=== PATIENT | female | born 1950 | race African-American/Black ===

== ENCOUNTER 2019-05-15 09:43 | Emergency (ER) | payer OTHER ==
[2019-05-15 09:57] VITALS: BMI 26.2
--- NOTE | 2019-05-15 10:29 | PDOC ---
History of Present Illness - General Chief Complaint: Pain Stated Complaint: BILATERAL FOOT PAIN Time Seen by Provider: 05/15/19 10:01 History Source: Patient - History of Present Illness Timing/Duration: other Past History - Past Medical History Allergies/Adverse Reactions: Allergies Allergy/AdvReac Type Severity Reaction Status Date / Time No Known Allergies Allergy Verified 05/15/19 09:49 Home Medications: Ambulatory Orders Amlodipine Besylate [Norvasc -] 10 mg PO DAILY 05/15/19 Aspirin 81 mg PO DAILY 05/15/19 Atorvastatin Calcium 40 mg PO HS 05/15/19 Memantine HCl [Namenda -] 5 mg PO BID 05/15/19 metFORMIN HCL [Metformin HCl] 500 mg PO DAILY 05/15/19 COPD: No Diabetes: Yes HTN: Yes Hypercholesterolemia: Yes - Immunization History Td Vaccination: Yes Immunization Up to Date: Yes - Psycho Social/Smoking Cessation Hx Smoking Status: Yes Smoking History: Never smoked Years of Tobacco Use: 0 Number of Cigarettes Smoked Daily: 0 Cigars Per Day: 0 Review of Systems - Review of Systems Constitutional: No: Chills, Fever, Malaise, Weakness Respiratory: No: Cough, Shortness of Breath Cardiac (ROS): No: Chest Pain ABD/GI: No: Diarrhea, Nausea, Vomiting, Abdominal cramping Neurological: No: Headache, Dizziness *Physical Exam - Vital Signs Last Vital Signs Temp Pulse Resp BP Pulse Ox 98.1 F 98 H 18 171/98 H 98 05/15/19 09:55 05/15/19 09:55 05/15/19 09:55 05/15/19 09:55 05/15/19 09:55 - Physical Exam General Appearance: Yes: Appropriately Dressed. No: Apparent Distress HEENT: positive: Normal Voice Neck: positive: Supple Respiratory/Chest: positive: Lungs Clear, Normal Breath Sounds. negative: Respiratory Distress Cardiovascular: positive: Regular Rate, S1, S2 Gastrointestinal/Abdominal: positive: Soft. negative: Tender Extremity: positive: Normal Inspection Integumentary: positive: Dry, Warm Neurologic: positive: Fully Oriented, Alert, Normal Mood/Affect, Motor Strength 5/5 Medical Decision Making - Medical Decision Making 05/15/19 10:27 68-year-old female history of diabetes, undomiciled and brought in by EMS after being found in her car today. Patient is a poor historian but states for the past 8 years she has lived in [place] but came back to [place] 3 months ago in an attempt to try to retrieve her dog that was in a assisted per pt. Patient states she was staying with her daughter in [place] but left home 2 and 1/2 months ago and since then have been staying with different family members and in her car. Patient states she would like to find a room to reside and not a assisted. Currently receives over $2000 from her pension. Reports that she worked at [employer] for over 20 years. Patient currently teary on evaluation. Denies SI or HI. Reports no psych history and denies any medical complaints at this time. Patient well-appearing with elevated BP exam otherwise unremarkable. Patient refusing labs lab work at this time. A&O x 3 and appears to have capacity at this time. Agrees to talk to vp digital marketing social media and crm and requesting food 05/15/19 11:13 Pt evaluated by ED HAYDE who gave patient options for drop in shelters. Patient states she will take bus to get her car which is parked at the police station and will go to 1 of the shelters patient referred by SW, Pt told that at assisted she can receive further information regarding Section 3 apt placement. Patient states she does follow-up with a PMD in the [place]. Currently has her diabetic medication and needs no refill. Rpt BP improved and remains well appearing. Stable for dc Discharge - Discharge Information Problems reviewed: Yes Clinical Impression/Diagnosis: Evaluation by medical service required Condition: Good Disposition: HOME - Follow up/Referral - Patient Discharge Instructions Additional Instructions: Please go to to 1 of the drop-in assisted that was discussed with you with ED vp digital marketing social media and crm. From there you can get further evaluation on section 3 apartment placement Continue to follow-up with your doctor - Post Discharge Activity
[2019-05-15 12:14] VITALS: BP 133/68; PULSE 89; TEMP 98.6
== END 2019-05-15 12:14 | disposition home or self-care (01) ==
LOC: JER 09:43
DX: Z00.00 Encounter for general adult medical examination without abnormal findings (principal); I10 Essential (primary) hypertension; E78.00 Pure hypercholesterolemia, unspecified; E11.9 Type 2 diabetes mellitus without complications; Z79.84 Long term (current) use of oral hypoglycemic drugs; Z59.0 Homelessness
CPT/HCPCS: 99281-25

== ENCOUNTER 2019-05-16 17:30 | Emergency (ER) | payer OTHER ==
[2019-05-16 17:51] VITALS: BP 147/67; PULSE 97; TEMP 97.9; BMI 25.4
--- NOTE | 2019-05-16 19:28 | PDOC ---
History of Present Illness - General Stated Complaint: CONFUSED - History of Present Illness Initial Comments: 05/16/19 19:45 68 year old woman with a history of DM, undomiciled and brought in by police presenting with confusion after she was found in someone elses car that looked similar to her. The patient was seen in this facility 1 day ago after being found in her own car. Per last note the patient has been living in [place] but moved back to [place] 3 months ago and has been living with family members and in her car. She was discharged yesterday after social work evaluation and referral to a senior living which she agreed to. Based on past note the patient appeared less confused than today. ROS GENERAL/CONSTITUTIONAL: No fever or chills. No weakness. HEAD, EYES, EARS, NOSE AND THROAT: No sore throat. CARDIOVASCULAR: No chest pain or shortness of breath RESPIRATORY: No cough, wheezing, or hemoptysis. GASTROINTESTINAL: No nausea, vomiting, diarrhea or constipation. GENITOURINARY: No dysuria, frequency, or change in urination. MUSCULOSKELETAL: No joint or muscle swelling or pain. No neck or back pain. SKIN: No rash NEUROLOGIC: No headache, vertigo, loss of consciousness, or change in strength/ sensation. ENDOCRINE: No increased thirst. No abnormal weight change PE GENERAL: AO x2, in no acute distress HEAD: No signs of trauma, normocephalic, atraumatic EYES: EOMI, sclera anicteric, conjunctiva clear ENT: oropharynx clear without exudates. Moist mucosa NECK: Normal ROM, supple, LUNGS: No distress, speaks full sentences, clear to auscultation bilaterally HEART: Regular rate and rhythm, normal S1 and S2, no murmurs, rubs or gallops, peripheral pulses normal and equal bilaterally. ABDOMEN: Soft, nontender. No guarding, no rebound. No masses EXTREMITIES : Normal inspection, Normal range of motion, no edema. No clubbing or cyanosis. NEUROLOGICAL: Cranial nerves II through XII grossly intact. Normal speech, no focal sensorimotor deficits SKIN: Warm, Dry, normal turgor, no rashes or lesions noted MDM DDX including but not limited to: eval for AMS r/o hypoglecmia vs intracranial pathology vs infectious vs electrolyte ED Course: Patient refuses labwork and imaging. She has full capacity, knows where she is, why she is here and the year and month. She states she does not want to stay in the hospital and tried to leave the building while at CT scan. This marketing copywriter came to talk to the patient while in radiology suite. The patient refused ct scan and refused to walk back to the ER When attempting to guide the patient back to the ER the patient pushed this writers arm Condition 10 was called and security came to assist The patient was brought back to the ER, refusing all medical care. She left the facility against medical advise Deana Powell, PGY2 Emergency Medicine 05/17/19 19:28 Past History - Past Medical History Allergies/Adverse Reactions: Allergies Allergy/AdvReac Type Severity Reaction Status Date / Time No Known Allergies Allergy Verified 05/17/19 18:30 Home Medications: Ambulatory Orders Amlodipine Besylate [Norvasc -] 10 mg PO DAILY 05/15/19 Aspirin 81 mg PO DAILY 05/15/19 Atorvastatin Calcium 40 mg PO HS 05/15/19 Memantine HCl [Namenda -] 5 mg PO BID 05/15/19 metFORMIN HCL [Metformin HCl] 500 mg PO DAILY 05/15/19 COPD: No Diabetes: Yes HTN: Yes Hypercholesterolemia: Yes - Immunization History Td Vaccination: Yes Immunization Up to Date: Yes - Psycho Social/Smoking Cessation Hx Smoking Status: Yes Smoking History: Smoker current status UNK Years of Tobacco Use: 0 Have you smoked in the past 12 months: No Number of Cigarettes Smoked Daily: 0 Cigars Per Day: 0 Information on smoking cessation initiated: No Drug/Substance Use Hx: No *Physical Exam - Vital Signs Last Vital Signs Temp Pulse Resp BP Pulse Ox 97.9 F 97 H 18 147/67 97 05/16/19 17:38 05/16/19 17:38 05/16/19 17:38 05/16/19 17:38 05/16/19 17:38 ED Treatment Course - LABORATORY CBC & Chemistry Diagram: 05/16/19 21:30 05/16/19 21:30 - ADDITIONAL ORDERS Additional order review: Laboratory Results 05/16/19 18:03 POC Glucometer 102 05/16/19 18:03 POC Glucometer 102 Discharge - Discharge Information Clinical Impression/Diagnosis: Agitated Disposition: AGAINST MEDICAL ADVICE - Follow up/Referral - Patient Discharge Instructions - Post Discharge Activity
--- NOTE | 2019-05-16 20:05 | PDOC ---
Attending Attestation - Resident Resident Name: Deana Powell - ED Attending Attestation I have performed the following: I have examined & evaluated the patient, The case was reviewed & discussed with the resident, I agree w/resident's findings & plan - HPI HPI: 05/16/19 21:35 see resident hpi - Physicial Exam PE: 05/16/19 21:35 agree with resident exam - Medical Decision Making 05/16/19 21:36 68-year-old undomiciled female with diabetes brought in by police after being found in her car in inclement weather Plan for labs and medical screening Will likely hold for repeat social work recommendation in the morning as patient is not a safe discharge at this time
--- NOTE | 2019-05-17 11:50 | EKG ---
Test Reason : Blood Pressure : / mmHG Vent. Rate : 088 BPM Atrial Rate : 088 BPM P-R Int : 144 ms QRS Dur : 074 ms QT Int : 334 ms P-R-T Axes : 053 -35 098 degrees QTc Int : 404 ms NORMAL SINUS RHYTHM WITH SINUS ARRHYTHMIA LEFT AXIS DEVIATION POSSIBLE ANTERIOR INFARCT , AGE UNDETERMINED ABNORMAL ECG NO PREVIOUS ECGS AVAILABLE Confirmed by KINGSLEY TANNER MD ([id number]) on 05/17/2019 11:50:09 AM Referred By: Confirmed By:KINGSLEY TANNER MD
== END 2019-05-16 23:23 | disposition left against medical advice (07) ==
LOC: JER 17:30
DX: R45.1 Restlessness and agitation (principal); I10 Essential (primary) hypertension; E78.00 Pure hypercholesterolemia, unspecified; E11.9 Type 2 diabetes mellitus without complications; Z79.84 Long term (current) use of oral hypoglycemic drugs; Z79.82 Long term (current) use of aspirin; Z59.0 Homelessness; Z65.9 Problem related to unspecified psychosocial circumstances
CPT/HCPCS: 82962; 84484; 93005; 93010; 99282-25

== ENCOUNTER 2019-05-17 18:21 | Observation (INO) | payer OTHER ==
[2019-05-17 18:30] VITALS: BMI 24.5
--- NOTE | 2019-05-17 18:33 | PDOC ---
Rapid Medical Evaluation Time Seen by Provider: 05/17/19 18:29 Medical Evaluation: Allergies Allergy/AdvReac Type Severity Reaction Status Date / Time No Known Allergies Allergy Verified 05/16/19 17:37 05/17/19 18:30 pt c/o: eval for hypothermia, states toes are going to fall off, Pt on brief exam: vss, in NAD Pt ordered for: none Pt to proceed to the ED Discharge Disposition - Diagnosis Social problem - Discharge Dispostion Condition at time of disposition: Stable - Referrals - Patient Instructions - Post Discharge Activity
--- NOTE | 2019-05-17 20:53 | PDOC ---
History of Present Illness - General Stated Complaint: homeless Time Seen by Provider: 05/17/19 18:29 - History of Present Illness Initial Comments: 05/17/19 21:44 68 yo undomiciled F, PMH NIDDM, HTN, brought in after police found her sleeping in her car. Notably, patient was seen last night for same and left AMA. Has no acute health complaints, but has nowhere to go. Denies CP, SOB, abd pain, urinary symptoms, fevers/chills, CAR, N/V, constipation /diarrhea. Past History - Past Medical History Allergies/Adverse Reactions: Allergies Allergy/AdvReac Type Severity Reaction Status Date / Time No Known Allergies Allergy Verified 05/17/19 18:30 Home Medications: Ambulatory Orders Amlodipine Besylate [Norvasc -] 10 mg PO DAILY 05/15/19 Aspirin 81 mg PO DAILY 05/15/19 Atorvastatin Calcium 40 mg PO HS 05/15/19 Memantine HCl [Namenda -] 5 mg PO BID 05/15/19 metFORMIN HCL [Metformin HCl] 500 mg PO DAILY 05/15/19 COPD: No Diabetes: Yes HTN: Yes Hypercholesterolemia: Yes - Immunization History Td Vaccination: Yes Immunization Up to Date: Yes - Psycho Social/Smoking Cessation Hx Smoking Status: Yes Smoking History: Never smoked Years of Tobacco Use: 0 Have you smoked in the past 12 months: No Number of Cigarettes Smoked Daily: 0 Cigars Per Day: 0 Drug/Substance Use Hx: No Review of Systems - Review of Systems Comments:: 05/17/19 21:17 GENERAL/CONSTITUTIONAL: No fever or chills. No weakness. HEAD, EYES, EARS, NOSE AND THROAT: No change in vision. No ear pain or discharge. No sore throat. CARDIOVASCULAR: No chest pain or shortness of breath. RESPIRATORY: No cough, wheezing, or hemoptysis. GASTROINTESTINAL: No nausea, vomiting, diarrhea or constipation. GENITOURINARY: No dysuria, frequency, or change in urination. MUSCULOSKELETAL: No joint or muscle swelling or pain. No neck or back pain. SKIN: No rash NEUROLOGIC: No headache, vertigo, loss of consciousness, or change in strength/ sensation. ENDOCRINE: No increased thirst. No abnormal weight change. HEMATOLOGIC/LYMPHATIC: No anemia, easy bleeding, or history of blood clots. ALLERGIC/IMMUNOLOGIC: No hives or skin allergy *Physical Exam - Vital Signs Last Vital Signs Temp Pulse Resp BP Pulse Ox 98 F 98 H 18 137/56 L 99 05/17/19 18:23 05/17/19 18:23 05/17/19 18:23 05/17/19 18:23 05/17/19 18:23 - Physical Exam 05/17/19 21:15 Gen: well-developed, disheveled, NAD Neuro: AAOX4, CN II-XII intact, FTN intact, EOMI, PERRLA, 5/5 strength, SILT HEENT: atraumatic, normocephalic, dry mucous membranes Neck: trachea midline, supple CV: regular rate, regular rhythm, no murmurs, rubs, or gallops Pulm: CTA b/l, no wheezing Abd: soft, non-distended, non-tender MSK: full ROM, intact pulses Extr: no edema, no deformities Skin: warm, dry ED Treatment Course - LABORATORY CBC & Chemistry Diagram: 05/17/19 20:45 05/17/19 20:45 - RADIOLOGY Radiology Studies Ordered: Category Date Time Status CXRPORT [CHEST X-RAY PORTABLE*] [RAD] Stat Radiology 05/17/19 20:06 Ordered Medical Decision Making - Medical Decision Making 05/17/19 21:17 Social admit for homelessness, will medically clear first. - CBC, CMP - EKG, CXR - trop 05/17/19 21:44 CBC, CMP wnl. CXR with no acute pathology. 05/17/19 21:56 EKG normal sinus at 81 bpm with flat T waves in the lateral leads, T wave inversion in AVL, notched QRS in V1. Appears unchanged from prior EKG yesterday. Discharge - Discharge Information Problems reviewed: Yes Clinical Impression/Diagnosis: Social problem - Follow up/Referral Referrals: ON STAFF,NOT [Primary Care Provider] - - Patient Discharge Instructions - Post Discharge Activity
[2019-05-17 21:06] LABS: BASO % 0.6 % (0-2.0); EOS % 2.7 % (0-4.5); HEMATOCRIT 36.3 % (32.4-45.2); HEMOGLOBIN 11.8 GM/dL (10.7-15.3); LYMPH % 26.9 % (8-40); MCH 30.1 pg (25.7-33.7); MCHC 32.4 g/dl (32.0-36.0); MEAN CELL VOLUME 93.1 fl (80-96); MEAN PLT VOLUME 7.9 fl (7.5-11.1); MONO % 11.8 % (3.8-10.2); PLATELET COUNT 281 K/MM3 (134-434); RDW 14.7 % (11.6-15.6); WHITE BLOOD COUNT 5.3 K/mm3 (4.0-10.0)
[2019-05-17 21:38] LABS: ALBUMIN 3.4 g/dl (3.4-5.0); BILIRUBIN,TOTAL 0.4 mg/dL (0.2-1); BLOOD UREA NITROGEN 16.8 mg/dL (7-18); CALCIUM 9.3 mg/dL (8.5-10.1); POTASSIUM 4.1 mmol/L (3.5-5.1); TOT PROT 7.1 g/dl (6.4-8.2)
--- NOTE | 2019-05-17 22:49 | PDOC ---
Attending Attestation - Resident Resident Name: Flor Jones - ED Attending Attestation I have performed the following: I have examined & evaluated the patient, The case was reviewed & discussed with the resident, I agree w/resident's findings & plan, Exceptions are as noted - HPI HPI: 05/24/19 19:36 See resident HPI - Physicial Exam PE: 05/24/19 19:37 Agree with exam as documented by resident - Medical Decision Making 05/24/19 19:37 Repeat visit after found sleeping in car, question ability to care for self evaluate for acute medical issues admit for care and placement
--- NOTE | 2019-05-17 23:56 | HP ---
CHIEF COMPLAINT: Homeless PCP: None HISTORY OF PRESENT ILLNESS: Patient is a 68 year old undomiciled female with PMH of NIDDM and HTN brought in by police after found sleeping in her car. Pt has been evaluated in [facility] ED twice over the past 2 nights for similar issues. Patient has been living in [place] but moved back to [place] 3 months ago and has been living with family members and in her car. She was discharged from ED 2 days ago after social work evaluation and referral to a senior living which she agreed to. She was brought in to the ED again last night with confusion after she was found in someone else's car that looked similar to her own. Due to AMS, a CT head was ordered, but pt refused. She became violent in the ED and refused medical care, leaving AMA. Tonight she presents with less confusion, calmer, not agitated. No medical complaints/symptoms at this time. No SI or HI. She denies any recent alcohol or drug use. Recent Travel: denies PAST MEDICAL HISTORY: NIDDM HTN PAST SURGICAL HISTORY: Social History: Smoking: denies Alcohol: denies Drugs: denies Allergies No Known Allergies Allergy (Verified 05/17/19 18:30) HOME MEDICATIONS: Home Medications Medication Instructions Recorded Amlodipine Besylate [Norvasc -] 10 mg PO DAILY 05/15/19 Aspirin 81 mg PO DAILY 05/15/19 Atorvastatin Calcium 40 mg PO HS 05/15/19 Memantine HCl [Namenda -] 5 mg PO BID 05/15/19 metFORMIN HCL [Metformin HCl] 500 mg PO DAILY 05/15/19 REVIEW OF SYSTEMS CONSTITUTIONAL: Absent: fever, chills, diaphoresis, generalized weakness, malaise, loss of appetite, weight change HEENT: Absent: rhinorrhea, nasal congestion, throat pain, throat swelling, difficulty swallowing, mouth swelling, ear pain, eye pain, visual changes CARDIOVASCULAR: Absent: chest pain, syncope, palpitations, irregular heart rate, lightheadedness , peripheral edema RESPIRATORY: Absent: cough, shortness of breath, dyspnea with exertion, orthopnea, wheezing, stridor, hemoptysis GASTROINTESTINAL: Absent: abdominal pain, abdominal distension, nausea, vomiting, diarrhea, constipation, melena, hematochezia GENITOURINARY: Absent: dysuria, frequency, urgency, hesitancy, hematuria, flank pain, genital pain MUSCULOSKELETAL: Absent: myalgia, arthralgia, joint swelling, back pain, neck pain SKIN: Absent: rash, itching, pallor HEMATOLOGIC/IMMUNOLOGIC: Absent: easy bleeding, easy bruising, lymphadenopathy, frequent infections ENDOCRINE: Absent: unexplained weight gain, unexplained weight loss, heat intolerance, cold intolerance NEUROLOGIC: Absent: headache, focal weakness or paresthesias, dizziness, unsteady gait, seizure, mental status changes, bladder or bowel incontinence PSYCHIATRIC: Absent: anxiety, depression, suicidal or homicidal ideation, hallucinations. PHYSICAL EXAMINATION Vital Signs - 24 hr 05/17/19 18:23 Temperature 98 F Pulse Rate 98 H Respiratory 18 Rate Blood Pressure 137/56 L O2 Sat by Pulse 99 Oximetry (%) GENERAL: Sleepy, but arousable. Oriented x2, states that it is November. HEAD: Normal with no signs of trauma. EYES: Pupils equal, round and reactive to light, extraocular movements intact, sclera anicteric, conjunctiva clear. No lid lag. EARS, NOSE, THROAT: Ears normal, nares patent, oropharynx clear without exudates. Moist mucous membranes. NECK: Normal range of motion, supple without lymphadenopathy, JVD, or masses. LUNGS: Breath sounds equal, clear to auscultation bilaterally. No wheezes, and no crackles. No accessory muscle use. HEART: Regular rate and rhythm, normal S1 and S2 without murmur, rub or gallop. ABDOMEN: Soft, nontender, not distended, normoactive bowel sounds, no guarding, no rebound, no masses. No hepatomegaly or splenomegaly. MUSCULOSKELETAL: Normal range of motion at all joints. No bony deformities or tenderness. No CVA tenderness. UPPER EXTREMITIES: 2+ pulses, warm, well-perfused. No cyanosis. No clubbing. No peripheral edema. LOWER EXTREMITIES: 2+ pulses, warm, well-perfused. No calf tenderness. No peripheral edema. NEUROLOGICAL: Cranial nerves II-XII intact. Normal speech. Normal gait. PSYCHIATRIC: Cooperative. Good eye contact. Appropriate mood and affect. SKIN: Warm, dry, normal turgor, no rashes or lesions noted, normal capillary refill. Laboratory Results - last 24 hr CBC, BMP 05/17/19 20:45 05/17/19 20:45 ASSESSMENT/PLAN: Patient is a 68 year old undomiciled female with PMH of NIDDM and HTN who presents for social work evaluation. Pt is medically cleared: labs unremarkable, EKG nsr with no st elevations/TWI, CXR clear with no acute pathology. Pt has no symptoms at this time. #Confusion/undomiciled CT head ordered to r/o underlying intracranial pathology F/u UA, Utox, and alcohol level F/u B12, folate, TSH, RPR Social work evaluation in am Psych consultation (Dr. Rodriguez) Chart review shows pt was on memantine in past, will restart once confirmed #NIDDM Pt takes metformin, will hold Implement ISS TIDAC and FSG monitoring #HTN Cont norvasc 10mg #HLD Cont lipitor 40mg HS #FEN Diabetic and sodium diet #Dispo Social work evaluation ATTENDING PHYSICIAN STATEMENT I saw and evaluated the patient. I reviewed the resident's note and discussed the case with the resident. I agree with the resident's findings and plan as documented. SUBJECTIVE: OBJECTIVE: ASSESSMENT AND PLAN:
--- NOTE | 2019-05-18 01:45 | PN ---
Teaching Attending Note Name of Resident: Sandra Valadez ATTENDING PHYSICIAN STATEMENT I saw and evaluated the patient. I reviewed the resident's note and discussed the case with the resident. I agree with the resident's findings and plan as documented. SUBJECTIVE: 68-year-old undomiciled woman with history of diabetes and hypertension who came to ER for the past 3 days and was thought to be confused however she left AGAINST MEDICAL ADVICE the last time. Patient has refused head CT previously. Denied any alcohol or drug use. OBJECTIVE: Last Vital Signs Temp Pulse Resp BP Pulse Ox 98 F 98 H 18 137/56 L 99 05/17/19 18:23 05/17/19 18:23 05/17/19 18:23 05/17/19 18:23 05/17/19 18:23 GENERAL: Well developed, well nourished. Awake and alert. No acute distress. HEENT: Normocephalic, atraumatic. PERRLA, EOMI. No conjunctival pallor. Sclera are non- icteric. Moist mucous membranes. Oropharynx is clear. NECK: Supple. Full ROM. No JVD. Carotid pulses 2+ and symmetric, without bruits. No thyromegaly. No lymphadenopathy. CARDIOVASCULAR: Regular rate and rhythm. No murmurs, rubs, or gallops. Distal pulses are 2+ and symmetric. PULMONARY: No evidence of respiratory distress. Lungs clear to auscultation bilaterally. No wheezing, rales or rhonchi. ABDOMINAL: Soft. Non-tender. Non-distended. No rebound or guarding. No organomegaly. Normoactive bowel sounds. MUSCULOSKELETAL Normal range of motion at all joints. No bony deformities or tenderness. No CVA tenderness. EXTREMITIES: No cyanosis. No clubbing. No edema. No calf tenderness. SKIN: Warm and dry. Normal capillary refill. No rashes. No jaundice. NEUROLOGICAL: Alert, awake, appropriate. Cranial nerves 2-12 intact. No deficits to light touch and temperature in face, upper extremities and lower extremities. PSYCHIATRIC: Cooperative. Good eye contact. Appropriate mood and affect. Abnormal Lab Results 05/17/19 05/17/19 05/17/19 20:45 20:45 20:45 Monocytes % 11.8 H Chloride 110 H Anion Gap 6 L AST 42 H Creatine Kinase 862 H CK-MB (CK-2) 4.0 H Imaging studies reviewed ASSESSMENT AND PLAN: #Altered mental status Head CT UA, urine toxicology, EtOH level TSH, vitamin B12 Psychiatry evaluation #Homelessness motion picture set up worker intervention #Hypertension Continue amlodipine #DVT prophylaxis continue heparin subcutaneously
[2019-05-18 05:11] LABS: HYALINE CASTS 1 /lpf (0-8); URINE APPEARANCE CLEAR; URINE BACTERIA 22.2 /hpf (NEGATIVE); URINE BILIRUBIN NEGATIVE (NEGATIVE); URINE COLOR YELLOW; URINE GLUCOSE (UA) NEGATIVE (NEGATIVE); URINE KETONE 1+ (NEGATIVE); URINE LEUK ESTERASE 1+ (NEGATIVE); URINE NITRITE NEGATIVE (NEGATIVE); URINE PROTEIN NEGATIVE (NEGATIVE); URINE RBC 1 /hpf (0-4); URINE UROBILINOGEN 0.2 mg/dL (0.2-1.0); URINE WBC 8 /hpf (0-5)
[2019-05-18 05:21] LABS: COCAINE, UR NEGATIVE ng/ml (CUTOFF=300); METHADONE, UR NEGATIVE ng/ml (CUTOFF=300); OPIATES, URI NEGATIVE ng/ml (CUTOFF=300); PHENCYCLIDINE,URINE NEGATIVE ng/ml (CUTOFF=25); URINE AMPHETAMINES NEGATIVE ng/ml (CUTOFF=500); URINE BARBITURATES NEGATIVE ng/ml (CUTOFF=200); URINE BENZODIAZEPINES NEGATIVE ng/ml (CUTOFF=200)
[2019-05-18] MEDS: INSULIN SLIDING SCALE (NOVOLOG) 1 VIAL SQ SCH ×3 (07:14→16:30)
--- NOTE | 2019-05-18 09:55 | CON.PSY ---
Psychiatry Consult Chief Complaint: 68 [place] [facility] and has [facility] , she was fround by police in a confused state. She is alert, and oriented this am. Not 3engaged in any aggressive Behaviour. [id number] feeling Depressed denies any [id number] abuse. - Previous Psychiatric Treatment Inpatient: None - Previous Substance Abuse Treatment Outpatient: None - Current Medications Current Medications: Active Medications Amlodipine Besylate (Norvasc -) 10 mg PO DAILY [facility] Aspirin (Asa -) 81 mg PO DAILY [facility] Atorvastatin Calcium (Lipitor -) 40 mg PO HS [facility] Insulin Aspart (Novolog Vial Sliding Scale -) 1 vial SQ TIDAC [facility]; Protocol Last Admin: 05/18/19 07:14 Dose: Not Given - Allergies Allergies: Allergies Allergy/AdvReac Type Severity Reaction Status Date / Time No Known Allergies Allergy Verified 05/17/19 18:30 - Current Living Status Usual Living Arrangement: Alone - Current Mental Status Evaluation Appearance: Disheveled Attitude: Guarded - Affect Affect: Constrictive Appropriateness: Appropriate to Content - Mood Mood: Euthymic - Speech/Language Expressive: Coherent - Psychomotor Activity Psychomotor Activity: Normal - Thought Process Thought Process: Intact - Thought Content Hallucinations: Absent Delusions: Absent - Self Perception Self Perception: No Impairment - Cognition Attention: Alert Orientation: Time Memory, Immediate Recall: Intact Memory, Short Term: 2/3 Memory, Remote with Promptin/3 - Concentration Serial Sevens Intact: No Simple Calculations Intact: Yes - Abstraction Proverb Interpretation: Intact Judgement: Minimally Impaired - Insight Insight: Intact - Impulse Control Impulse Control: Good Control - Suicidal Ideation Suicidal Ideation: No - Homicidal Ideation Homicidal Ideation: No Assessment/Plan 1) No acute Mental illness. 2) No Psych m3eds. 3) Social problems.. Homelessness.
[2019-05-18] MEDS: amLODIPine BESYLATE 10 MG TABLET (FP) PO SCH (10:49)
[2019-05-18] MEDS: ASPIRIN 81 MG CHEWABLE TABLETS PO SCH (10:49)
--- NOTE | 2019-05-18 13:45 | EKG ---
Test Reason : Blood Pressure : / mmHG Vent. Rate : 081 BPM Atrial Rate : 081 BPM P-R Int : 152 ms QRS Dur : 082 ms QT Int : 380 ms P-R-T Axes : 060 -27 070 degrees QTc Int : 441 ms SINUS RHYTHM WITH MARKED SINUS ARRHYTHMIA WITH FUSION COMPLEXES POSSIBLE LEFT ATRIAL ENLARGEMENT POSSIBLE ANTERIOR INFARCT (CITED ON OR BEFORE 16-MAY-2019) ABNORMAL ECG Confirmed by MELO FLORES MD ([id number]) on 05/18/2019 1:45:02 PM Referred By: Confirmed By:MELO FLORES MD
--- NOTE | 2019-05-18 14:56 | PN ---
Physical Exam: SUBJECTIVE: Patient seen and examined at bedside. She is a very unique individual that describes a nomadic lifestyle. With daughter at bedside ( Nasreen Mckeon [phone]) the pt states she sold her home [address] in [place] to travel/life away from her family by choice. She denies abuse, being in danger, or other impetuses for leaving. Within that last year she has moved with her dog by car to [facility], [place], [place] and back to [place]. The pt insists she is fully able to care for herself although she does not remember her PCP and recent surgery (describes surgical intervention of prolactinoma at [facility]). She denies etoh and recreational drug use ever in lifetime. She endorses social smoking early in life. She eats three meals a day, including vegetables. Mother has h/o dementia but no other known psychiatric illness in family. OBJECTIVE: Vital Signs Temp Pulse Resp BP Pulse Ox 99.3 F 87 18 111/54 L 100 05/18/19 13:05/18/19 13:05/18/19 13:05/18/19 13:05/18/19 12:00 GENERAL: AOx3, in no acute distress HEAD: NCAT EYES: ARPIT, EOMI, conjunctiva clear. ENT: Ears normal, nares patent, oropharynx clear without exudates. Moist mucous membranes. NECK: Normal range of motion, supple without lymphadenopathy, JVD, or masses. LUNGS: CTAB. No wheezes, and no crackles. No accessory muscle use. HEART: RRR s1 s2 ABDOMEN: Soft, BS present in all 4 quadrants, non-distended, no JVD, MUSCULOSKELETAL: No bony deformities or tenderness. No CVA tenderness. UPPER EXTREMITIES: 2+ pulses, warm, well-perfused. No cyanosis. No clubbing. No peripheral edema. LOWER EXTREMITIES: 2+ pulses, warm, well-perfused. No calf tenderness. No peripheral edema. NEUROLOGICAL: No focal deficits. Cranial nerves II-XII intact. Biceps and patellar reflex 2+. Normal speech. Sensations intact. PSYCHIATRIC: Cooperative. Good eye contact. Appropriate mood and affect. She appears like a perfectly reasonable adult but is unable to answer how/when/why/ where of her travels. SKIN: Warm, dry, normal turgor, no rashes or lesions noted, normal capillary refill. Laboratory Results - last 24 hr 05/17/19 05/17/19 05/17/19 20:45 20:45 20:45 WBC 5.3 RBC 3.90 Hgb 11.8 Hct 36.3 MCV 93.1 MCH 30.1 MCHC 32.4 RDW 14.7 Plt Count 281 MPV 7.9 Absolute Neuts (auto) 3.1 Neutrophils % 58.0 Lymphocytes % 26.9 Monocytes % 11.8 H Eosinophils % 2.7 Basophils % 0.6 Nucleated RBC % 0 Sodium 145 Potassium 4.1 Chloride 110 H Carbon Dioxide 29 Anion Gap 6 L BUN 16.8 Creatinine 1.0 Est GFR (CKD-EPI)AfAm 67.04 Est GFR (CKD-EPI)NonAf 57.84 POC Glucometer Random Glucose 95 Calcium 9.3 Total Bilirubin 0.4 AST 42 H ALT 28 Alkaline Phosphatase 94 Creatine Kinase 862 H Creatine Kinase Index 0.4 CK-MB (CK-2) 4.0 H Troponin I < 0.02 Total Protein 7.1 Albumin 3.4 Vitamin B12 Serum Folate TSH Urine Color Urine Appearance Urine pH Ur Specific [place] Urine Protein Urine Glucose (UA) Urine Ketones Urine Blood Urine Nitrite Urine Bilirubin Urine Urobilinogen Ur Leukocyte Esterase Urine WBC (Auto) Urine RBC (Auto) Urine Casts (Auto) U Epithel Cells (Auto) Urine Bacteria (Auto) Opiates Screen Methadone Screen Barbiturate Screen Phencyclidine Screen Ur Amphetamines Screen MDMA (Ecstasy) Screen Benzodiazepines Screen Cocaine Screen U Marijuana (THC) Screen Alcohol, Quantitative RPR Titer 05/18/19 05/18/19 05/18/19 04:45 04:45 04:45 WBC RBC Hgb Hct MCV MCH MCHC RDW Plt Count MPV Absolute Neuts (auto) Neutrophils % Lymphocytes % Monocytes % Eosinophils % Basophils % Nucleated RBC % Sodium Potassium Chloride Carbon Dioxide Anion Gap BUN Creatinine Est GFR (CKD-EPI)AfAm Est GFR (CKD-EPI)NonAf POC Glucometer Random Glucose Calcium Total Bilirubin AST ALT Alkaline Phosphatase Creatine Kinase Creatine Kinase Index CK-MB (CK-2) Troponin I Total Protein Albumin Vitamin B12 1426 H Serum Folate 13 TSH 1.36 Urine Color Yellow Urine Appearance Clear Urine pH 5.0 Ur Specific [place] 1.018 Urine Protein Negative Urine Glucose (UA) Negative Urine Ketones 1+ H Urine Blood Negative Urine Nitrite Negative Urine Bilirubin Negative Urine Urobilinogen 0.2 Ur Leukocyte Esterase 1+ H Urine WBC (Auto) 8 Urine RBC (Auto) 1 Urine Casts (Auto) 1 U Epithel Cells (Auto) 2.0 Urine Bacteria (Auto) 22.2 Opiates Screen Negative Methadone Screen Negative Barbiturate Screen Negative Phencyclidine Screen Negative Ur Amphetamines Screen Negative MDMA (Ecstasy) Screen Negative Benzodiazepines Screen Negative Cocaine Screen Negative U Marijuana (THC) Screen Negative Alcohol, Quantitative < 3 RPR Titer 05/18/19 05/18/19 05/18/19 06:30 07:13 11:56 WBC RBC Hgb Hct MCV MCH MCHC RDW Plt Count MPV Absolute Neuts (auto) Neutrophils % Lymphocytes % Monocytes % Eosinophils % Basophils % Nucleated RBC % Sodium Potassium Chloride Carbon Dioxide Anion Gap BUN Creatinine Est GFR (CKD-EPI)AfAm Est GFR (CKD-EPI)NonAf POC Glucometer 87 148 Random Glucose Calcium Total Bilirubin AST ALT Alkaline Phosphatase Creatine Kinase Creatine Kinase Index CK-MB (CK-2) Troponin I Total Protein Albumin Vitamin B12 Serum Folate TSH Urine Color Urine Appearance Urine pH Ur Specific [place] Urine Protein Urine Glucose (UA) Urine Ketones Urine Blood Urine Nitrite Urine Bilirubin Urine Urobilinogen Ur Leukocyte Esterase Urine WBC (Auto) Urine RBC (Auto) Urine Casts (Auto) U Epithel Cells (Auto) Urine Bacteria (Auto) Opiates Screen Methadone Screen Barbiturate Screen Phencyclidine Screen Ur Amphetamines Screen MDMA (Ecstasy) Screen Benzodiazepines Screen Cocaine Screen U Marijuana (THC) Screen Alcohol, Quantitative RPR Titer Nonreactive Active Medications Amlodipine Besylate (Norvasc -) 10 mg PO DAILY [facility] Last Admin: 05/18/19 10:49 Dose: 10 mg Aspirin (Asa -) 81 mg PO DAILY [facility] Last Admin: 05/18/19 10:49 Dose: 81 mg Atorvastatin Calcium (Lipitor -) 40 mg PO HS [facility] Insulin Aspart (Novolog Vial Sliding Scale -) 1 vial SQ TIDAC [facility]; Protocol Last Admin: 05/18/19 11:58 Dose: Not Given Memantine (Namenda -) 5 mg PO BID [facility] ASSESSMENT/PLAN: 68 y/o female PMH HTN and DM brought in by [employer] [facility] after being found in car and confused. The pt offers no complaints but is unable to provide a clear history and has peculiar history consistent with fugue vs dementia. 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 Small hypodensity LEFT light radiata. Complete opacification of sphenoid sinus with masslike attenuation with erosive and destructive like changes at the base of the skill in the region of the clivus and sella turcica. - UA, U tox, etoh, rpr: NEG - B12 high. Folate, TSH WNL - F/u brain MRI to assess sella turcica - Consult psych - Consult neurology # Elevated CK - CK 862 - Initially reported as homeless - Was sleeping in car - Trop <0.02 # DM - Hold home regimen - ISS ACHS # HLD - Cont. curent home regimen: atorvastatin 40 mg hs # HTN - Cont. curent home regimen: amlodepine 10 mg PO QD # Poss h/o dementia - Ambulatory memantine 5 mg po BID # F/E/N - NS - Cont. to monitor - diabetic/low sodium diet # DVT prophylaxis - Heparin SQ # Disposition - med/surg Visit type - Emergency Visit Emergency Visit: No - New Patient This patient is new to me today: No - Critical Care Critical Care patient: No ATTENDING PHYSICIAN STATEMENT I saw and evaluated the patient. I reviewed the resident's note and discussed the case with the resident. I agree with the resident's findings and plan as documented. SUBJECTIVE: OBJECTIVE: ASSESSMENT AND PLAN:
--- NOTE | 2019-05-18 17:29 | PN ---
Teaching Attending Note Name of Resident: Poncho Glaser ATTENDING PHYSICIAN STATEMENT I saw and evaluated the patient. I reviewed the resident's note and discussed the case with the resident. I agree with the resident's findings and plan as documented. SUBJECTIVE: No fever or chills. no pain , no CAR, no SOB. she knows she is here because police found her sleeping in her car. She deos not know why she uses her car to sleep. she owns a house but not sure why she left it and where it was. she does not know where her daughter lives. she had brain sx recently ( 3 months reportedly). something was taken out but does not know if it was tumor. she donated her dog but does not know why. she has no visual changes , no weakness, no numbness or tingling. OBJECTIVE: NAD , awake, oriented x 3. recognizes her home address in [place], when mentioned. tearful . MMM. no facial droop. Cv: RRR, No MRG Lungs: CTAB Ext: No edema or erythema. No rash on skin Abd: soft, NT, Nd , NL BS neuro: EOMI, round equal pupils, cataracts seen. nl facial sensation , tongue at mid line. no facial droop. strength Upper extremities: 5/5 in biceps, triceps, shoulder abduction and shoulder shrug. nl hand inbound customer service agent Lower extremities: 5/5 hip flexion , knee flexion /extension , ankle dorsiflexion and plantar flexion . sensatio to light touch is nl. Nose to finger nl. reflexes 2+ biceps b/l. 1+ knee jerks b/l . ASSESSMENT AND PLAN: 68 y/o lady with h/o DM, HTN, , and questionable brain sx who presented after police found her sleeping in her car. 1- Although, the patient is oriented , she has gaps in her memory, does not know why she left her home, or where her daughter is, or why she donated her dog , ,,,,,etc. she says she had sx to her brain and since she has been different . CT with erosion of the sella [place] which could be post surgical Vs tumor Not able to gather info from her. her daughter name and number are not available ( she does not remember). her pharmacy was contacted ( on medications bottles), and PCP contact was obtained, but a release form needed to be faxed and still waiting on records. TSH, B12, nl. RPR not reactive. Non focal neuro exam. - will get MRI of the brain to evaluate sella Turcica - will get neuro eval to assess her memory problem. ? dementia, ? stroke ( doubt ), ? amnesia , other - will cont to try to gather some info about her ? pituitary tumor. , ? sx , and previous treatments - labs do not reflect metabolic cause - psych eval, with no psychiatric disease 2- H/o DM. SSI for now hold metformin 3- HTN : cont norvasc 4- on ASA . not sure why, but will cont given small infarcts on CT cont statin DVT PX : add heparin
--- NOTE | 2019-05-18 20:15 | CONSULT ---
Consult - text type - Consultation Consultation Note: NEUROLOGY CONSULTATION is greatly appreciated: Events reviewed. Patient examined with her daughter at the bedside who aides with history. Pt is a vague and unreliable historian. This 68 yo RH s woman with PMH sig for HTN, Chol, DM is maintained on: Amlodipine; Aspirin 81; Atorvastatin; Memantine 5 mg PO BID and Metformin. 1 year ago she sold her home(s) in [place] and moved to [facility]. 2 1/2 months ago she left her rented house and took to the road with her dog, living in her car. 2 months ago she was brought to [facility] by [place] police. There, she had CT of head when a "2 1/2 cm Pituitary mass" was discovered incidentally. She was transferred to [facility] where she was treated with a "pill" (ed: Cabergoline ?) which she never continued on D/C and returned to her car. 1 1/2 mos ago she was again brought tp [facility] for homelessness. This time, she was transferred to [facility] where she underwent transphenoidal hypophysectomy about 1 month ago. Daughter believes she was "the same before and after the surgery." Upon D/C she was "put in a cab to [place]." Daughter put her in a hotel in but she went AWOL. Now, admitted from her car in freezing weather. Patient denies any headaches, visual symptoms, etc. FH sig for dementia in her mother and 2 maternal aunts. She is 1 of 12 children , only 5 of whom survive. No OMS among the sibs. CT of head (reviewed): s/p transphenoidal surgery with scar tissue vs mass in the sphenoid. TSH, B12- normal DARIUSZ: No bruits, neck supple. Cor Reg NEURO: Ox [facility]. Apr, 2019 or 20. Poor reversals. Recalls 1 of 3. Fluent speech. Judgment impaired CN: Normal with full monocular and binocular farah Motor: No drift or tremor. Normal strength, bulk tone and reflexes. Toes down going. Coord: No FTN dystaxia Sensory: Normal Romberg -. Gait: slight shuffle. IMP: Non-focal exam sig for mild-mod OMS. Family history suggestive of Autosomal Alzheimer's disease (AD) Judgment is impaired S/P resection of pituitary adenoma (?Prolactinoma, ?asymptomatic). 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 Thank you very much, Miguelangel Lawrence MD
[2019-05-18] MEDS: THIAMINE HCL 200 MG/2 ML VIAL IVPB SCH (22:06)
[2019-05-18] MEDS: ATORVASTATIN CA 40 MG TABLET (FP) PO SCH (22:07)
[2019-05-18] MEDS: HEPARIN NA (PORCINE) 5,000 UNITS/ML 1ML VIAL SQ SCH (22:07)
[2019-05-18] MEDS: MEMANTINE HCL 5 MG TABLET (UD) PO SCH (22:07)
[2019-05-19] MEDS: THIAMINE HCL 200 MG/2 ML VIAL IVPB SCH ×4 (06:13→21:45)
[2019-05-19] MEDS: HEPARIN NA (PORCINE) 5,000 UNITS/ML 1ML VIAL SQ SCH ×3 (06:13→21:44)
[2019-05-19] MEDS: INSULIN SLIDING SCALE (NOVOLOG) 1 VIAL SQ SCH ×3 (06:21→16:33)
[2019-05-19 08:25] LABS: HEMATOCRIT 33.7 % (32.4-45.2); MCH 30.2 pg (25.7-33.7); MCHC 32.8 g/dl (32.0-36.0); MEAN PLT VOLUME 7.8 fl (7.5-11.1); PLATELET COUNT 258 K/MM3 (134-434); RBC 3.66 M/mm3 (3.60-5.2); RDW 14.6 % (11.6-15.6)
[2019-05-19 08:49] LABS: BILIRUBIN,TOTAL 0.3 mg/dL (0.2-1); BLOOD UREA NITROGEN 7.6 mg/dL (7-18); CALCIUM 9.1 mg/dL (8.5-10.1); CREATININE 0.8 mg/dL (0.55-1.3); MAGNESIUM 2.5 mg/dL (1.8-2.4); PHOSPHOROUS 3.7 mg/dL (2.5-4.9); TOT PROT 6.3 g/dl (6.4-8.2)
--- NOTE | 2019-05-19 09:16 | PN ---
Physical Exam: SUBJECTIVE: Patient seen and examined at bedside. No events overnight, no new complaints. Patient continues to refuse MRI brain despite explanation of its use and procedure. OBJECTIVE: Vital Signs Period Temp Pulse Resp BP Sys/Mathews Pulse Ox Last 24 Hr 98.0 F-99.3 F 72-87 18-18 111-133/54-66 100-100 GENERAL: The patient is awake, alert, and fully oriented, in no acute distress. HEAD: Normal with no signs of trauma. NECK: Trachea midline, full range of motion, supple. LUNGS: Breath sounds equal, clear to auscultation bilaterally, no wheezes, no crackles, no accessory muscle use. HEART: Regular rate and rhythm, S1, S2 without murmur, rub or gallop. ABDOMEN: Soft, nontender, nondistended, normoactive bowel sounds, no guarding, no rebound, no hepatosplenomegaly, no masses. EXTREMITIES: 2+ pulses, warm, well-perfused, no edema. NEUROLOGICAL: Cranial nerves II through X grossly intact. Normal speech, gait not observed. SKIN: Warm, dry, normal turgor, no rashes or lesions noted Laboratory Results - last 24 hr 05/18/19 05/18/19 05/18/19 06:30 11:56 16:27 WBC RBC Hgb Hct MCV MCH MCHC RDW Plt Count MPV Sodium Potassium Chloride Carbon Dioxide Anion Gap BUN Creatinine Est GFR (CKD-EPI)AfAm Est GFR (CKD-EPI)NonAf POC Glucometer 148 112 Random Glucose Calcium Phosphorus Magnesium Total Bilirubin AST ALT Alkaline Phosphatase Total Protein Albumin RPR Titer Nonreactive 05/19/19 05/19/19 05/19/19 06:00 06:19 07:47 WBC 3.0 L RBC 3.66 Hgb 11.0 Hct 33.7 MCV 92.0 MCH 30.2 MCHC 32.8 RDW 14.6 Plt Count 258 MPV 7.8 Sodium 145 Potassium 4.0 Chloride 112 H Carbon Dioxide 29 Anion Gap 4 L BUN 7.6 Creatinine 0.8 Est GFR (CKD-EPI)AfAm 87.80 Est GFR (CKD-EPI)NonAf 75.75 POC Glucometer 94 Random Glucose 89 Calcium 9.1 Phosphorus 3.7 Magnesium 2.5 H Total Bilirubin 0.3 AST 24 ALT 24 Alkaline Phosphatase 79 Total Protein 6.3 L Albumin 3.0 L RPR Titer Active Medications Generic Name Dose Route Start Last Admin Trade Name Keila PRN Reason Stop Dose Admin Amlodipine Besylate 10 mg 05/18/19 10:00 05/18/19 10:49 Norvasc - PO 10 mg DAILY [facility] Administration Aspirin 81 mg 05/18/19 10:00 05/18/19 10:49 Asa - PO 81 mg DAILY [facility] Administration Atorvastatin Calcium 40 mg 05/18/19 22:00 05/18/19 22:07 Lipitor - PO 40 mg HS [facility] Administration Donepezil HCl 5 mg 05/19/19 10:00 Aricept - PO DAILY [facility] Heparin Sodium (Porcine) 5,000 unit 05/18/19 22:00 05/19/19 06:13 Heparin - SQ 5,000 unit TID [facility] Administration Insulin Aspart 1 vial 05/18/19 07:00 05/19/19 06:21 Novolog Vial Sliding Scale - SQ Not Given TIDAC [facility] Protocol Memantine 5 mg 05/18/19 22:00 05/18/19 22:07 Namenda - PO 5 mg BID [facility] Administration Thiamine HCl 200 mg 05/18/19 20:30 05/19/19 06:21 Vitamin B1 Injection - IVPB 05/22/19 20:00 Not Given Q8H [facility] ASSESSMENT/PLAN: 68 y/o female PMH HTN and DM brought in by [employer] [facility] after being found in car and confused. The pt offers no complaints but is unable to provide a clear history and has peculiar history consistent with fugue vs dementia. # Fugue state vs dementia -patient is a poor historian -strong family history of dementia CT head w/ post-surgical changes and small hypodensity LEFT light radiata. Complete opacification of sphenoid sinus with masslike attenuation with erosive and destructive like changes at the base of the skill in the region of the clivus and sella turcica. -neuro consult -psych consult -MRI brain to further assess changes: patient continues to refuse MRI - UA, U tox, etoh, rpr: NEG - B12 high. Folate, TSH WNL -memantine 5mg po BID # DM - Hold home regimen - ISS ACHS # HLD - Cont. curent home regimen: atorvastatin 40 mg hs # HTN - Cont. current home regimen: amlodipine 10 mg PO QD # Poss h/o dementia - Ambulatory memantine 5 mg po BID # F/E/N - NS - Cont. to monitor - diabetic/low sodium diet # DVT prophylaxis - Heparin SQ # Disposition - med/surg Visit type - Emergency Visit Emergency Visit: Yes ED Registration Date: 05/17/19 Care time: The patient presented to the Emergency Department on the above date and was hospitalized for further evaluation of their emergent condition. - New Patient This patient is new to me today: Yes Date on this admission: 05/20/19 - Critical Care Critical Care patient: No ATTENDING PHYSICIAN STATEMENT I saw and evaluated the patient. I reviewed the resident's note and discussed the case with the resident. I agree with the resident's findings and plan as documented. SUBJECTIVE: OBJECTIVE: ASSESSMENT AND PLAN:
[2019-05-19] MEDS: amLODIPine BESYLATE 10 MG TABLET (FP) PO SCH (10:29)
[2019-05-19] MEDS: ASPIRIN 81 MG CHEWABLE TABLETS PO SCH (10:29)
[2019-05-19] MEDS: DONEPEZIL HCL 5 MG TABLET (FP) PO SCH (10:30)
[2019-05-19] MEDS: MEMANTINE HCL 5 MG TABLET (UD) PO SCH ×2 (10:30→21:42)
--- NOTE | 2019-05-19 14:44 | PN ---
Teaching Attending Note Name of Resident: Dominguez King ATTENDING PHYSICIAN STATEMENT I saw and evaluated the patient. I reviewed the resident's note and discussed the case with the resident. I agree with the resident's findings and plan as documented. SUBJECTIVE: no pain, no SOB , no fever . No events over night OBJECTIVE: NAD , awake, oriented x 3. still does not know her home address or where her daughter lives MMM. No facial droop. Cv: RRR, No MRG Lungs: CTAB Ext: No edema or erythema. Abd: soft, NT, Nd , NL BS ASSESSMENT AND PLAN: 68 y/o lady with h/o DM, HTN, , and questionable brain sx who presented after police found her sleeping in her car. 1- Possible dementia 2- H/o resection of pituitary tumor/lactorrhea/Bromocriptin use. most likely prolactinoma 3- H/o DM 4- HTN 5- Small infarcts on CT scan Plan : - She refused MRI last night. cont to refuse today after discussion . - daughter declined filling MRI questionnaire last night - patient lost IV access and refused a new one . so she missed her Thiamine. agreed to try later - [facility] from [facility] - will obtain other out pt records - ACTH, FSH, LH, and Prolactine pending - cont SSI - cont Norvasc - cont ASA - DVT PX : heparin
--- NOTE | 2019-05-19 14:54 | CONSULT ---
Consult Consult Specialty:: Endocrinology Reason for Consultation:: H/O Prolactinoma - History of Present Illness History of Present Illness: This is a 68 y/o F with h/o for HTN, HLD, DM s/p transphenoidal hypophysectomy about 1 month ago at [facility] is admitted after she was found in a car in freezing condition. Pt was maintained at home on Amlodipine; Aspirin 81; Atorvastatin; Memantine 5 mg PO BID and Metformin. One year ago she sold her home(s) in [place] and moved to [facility]. 2 1/2 months ago she left her rented house and took to the road with her dog, living in her car. 2 months ago she was brought to [facility] by [place] police. There, she had CT of head when a "2 1/2 cm Pituitary mass" was discovered incidentally. She was transferred to [facility] where she was treated with a "pill" (ed: Cabergoline ?) which she never continued on D/C and returned to her car. 1 1/2 mos ago she was again brought tp [facility] for homelessness. This time, she was transferred to [facility] where she underwent transphenoidal hypophysectomy about 1 month ago. Daughter believes she was "the same before and after the surgery." Upon D/C she was "put in a cab to [place]." Daughter put her in a hotel in but she went AWOL. Patient denies any headaches, visual symptoms, Nasal discharge. - History Source History Provided By: Patient, Medical Record - Past Medical History Endocrine: Yes: Other (Prolactinoma s/p surgery) - Alcohol/Substance Use Hx Alcohol Use: No - Smoking History Smoking history: Never smoked Have you smoked in the past 12 months: No Aproximately how many cigarettes per day: 0 - Social History Usual Living Arrangement: Alone Home Medications - Allergies Allergies/Adverse Reactions: Allergies Allergy/AdvReac Type Severity Reaction Status Date / Time No Known Allergies Allergy Verified 05/17/19 18:30 - Home Medications Home Medications: Ambulatory Orders Amlodipine Besylate [Norvasc -] 10 mg PO DAILY 05/15/19 Aspirin 81 mg PO DAILY 05/15/19 Atorvastatin Calcium 40 mg PO HS 05/15/19 Memantine HCl [Namenda -] 5 mg PO BID 05/15/19 metFORMIN HCL [Metformin HCl] 500 mg PO DAILY 05/15/19 Review of Systems - Review of Systems Constitutional: reports: No Symptoms Eyes: reports: No Symptoms HENT: reports: No Symptoms Neck: reports: No Symptoms Cardiovascular: reports: No Symptoms Respiratory: reports: No Symptoms Gastrointestinal: reports: No Symptoms Musculoskeletal: reports: No Symptoms Neurological: reports: No Symptoms Endocrine: reports: No Symptoms Physical Exam Vital Signs: Vital Signs Temperature 98.5 F 05/19/19 06:00 Pulse Rate 82 05/19/19 06:00 Respiratory Rate 18 05/19/19 06:00 Blood Pressure 115/66 05/19/19 06:00 O2 Sat by Pulse Oximetry (%) 100 05/19/19 04:00 Constitutional: Yes: No Distress, Anxious Eyes: Yes: Conjunctiva Clear, EOM Intact HENT: Yes: Atraumatic, Normocephalic Neck: Yes: Supple, Trachea Midline Cardiovascular: Yes: Regular Rate and Rhythm Respiratory: Yes: Regular, CTA Bilaterally Gastrointestinal: Yes: Normal Bowel Sounds, Soft Musculoskeletal: Yes: WNL Extremities: Yes: WNL Edema: No Neurological: Yes: Alert, Oriented Labs: CBC, BMP 05/19/19 07:47 05/19/19 06:00 Assessment/Plan AP: Prolactinoma s/p Surgery Prolactin, ACTH pending TSH wnl Will get rpt TSH with FT4, Morning cortisol with ACTH, IGG1 May need ACTH stim test if Cortisol is low. Pt refused MRI yesterday Will f/u after results are available.
[2019-05-19] MEDS: ATORVASTATIN CA 40 MG TABLET (FP) PO SCH (21:42)
[2019-05-20] MEDS: THIAMINE HCL 200 MG/2 ML VIAL IVPB SCH ×3 (06:12→22:55)
[2019-05-20] MEDS: INSULIN SLIDING SCALE (NOVOLOG) 1 VIAL SQ SCH ×3 (06:15→17:35)
[2019-05-20] MEDS: HEPARIN NA (PORCINE) 5,000 UNITS/ML 1ML VIAL SQ SCH ×3 (06:17→22:54)
[2019-05-20 06:39] LABS: FOLLICLE STIMULATING HORMONE 0.7 mIU/mL (.); LUTEINIZING HORMONE 0.1 mIU/mL (.)
[2019-05-20] MEDS: DONEPEZIL HCL 5 MG TABLET (FP) PO SCH (09:44)
[2019-05-20] MEDS: amLODIPine BESYLATE 10 MG TABLET (FP) PO SCH (09:44)
[2019-05-20] MEDS: MEMANTINE HCL 5 MG TABLET (UD) PO SCH ×2 (09:45→22:54)
[2019-05-20] MEDS: ASPIRIN 81 MG CHEWABLE TABLETS PO SCH (09:46)
--- NOTE | 2019-05-20 18:26 | PN ---
Progress Note (short form) - Note Progress Note: Subjective: no fever or chills. No CAR. No pain . no SOB Objective: Vital Signs: Last Vital Signs Temp Pulse Resp BP Pulse Ox 98.5 F 67 18 134/62 98 05/20/19 18:00 05/20/19 18:00 05/20/19 18:00 05/20/19 18:00 05/19/19 21:00 Laboratory Results - last 24 hr 05/19/19 05/20/19 05/20/19 07:00 06:14 12:02 POC Glucometer 91 82 FSH 0.7 Luteinizing Hormone 0.1 Prolactin 61.4 H 05/20/19 17:13 POC Glucometer 105 FSH Luteinizing Hormone Prolactin Physical Exam: NAD, awake. MMM. No facial droop. Cv: RRR, No MRG Lungs: CTAB Ext: No edema or erythema. Abd: soft, NT, ND, NL BS ASSESSMENT AND PLAN: 68 y/o lady with h/o DM, HTN, , and questionable brain sx who presented after police found her sleeping in her car. 1- Possible dementia 2- H/o resection of a prolactinoma 3- H/o DM 4- HTN 5- Small infarcts on CT scan Plan : - Cotn to refuse MRI. - cont thiamine . tomorrow evening is the last dose - Records from national recruiter pending - will obtain other out pt records - ACTH, and cortisol, TSH, FT3, FT4 pending - prolactine level is elevated. awaiting Endocrine input . - cont SSI - cont Norvasc - cont ASA - DVT PX : heparin Visit type - Emergency Visit Emergency Visit: Yes ED Registration Date: 05/17/19 Care time: The patient presented to the Emergency Department on the above date and was hospitalized for further evaluation of their emergent condition. - New Patient This patient is new to me today: No - Critical Care Critical Care patient: No
[2019-05-20] MEDS: ATORVASTATIN CA 40 MG TABLET (FP) PO SCH (22:54)
[2019-05-21] MEDS: INSULIN SLIDING SCALE (NOVOLOG) 1 VIAL SQ SCH ×3 (06:49→16:11)
[2019-05-21] MEDS: THIAMINE HCL 200 MG/2 ML VIAL IVPB SCH ×3 (06:50→21:30)
[2019-05-21] MEDS: HEPARIN NA (PORCINE) 5,000 UNITS/ML 1ML VIAL SQ SCH ×3 (06:50→21:30)
[2019-05-21] MEDS ORDERED: PT OWN MED DRAWER 7, Y5N ONE ×2 (08:48→09:47)
[2019-05-21] MEDS: ASPIRIN 81 MG CHEWABLE TABLETS PO SCH (10:02)
[2019-05-21] MEDS: DONEPEZIL HCL 5 MG TABLET (FP) PO SCH (10:02)
[2019-05-21] MEDS: amLODIPine BESYLATE 10 MG TABLET (FP) PO SCH (10:02)
[2019-05-21] MEDS: MEMANTINE HCL 5 MG TABLET (UD) PO SCH ×2 (10:02→21:31)
--- NOTE | 2019-05-21 17:51 | PN ---
Physical Exam: SUBJECTIVE: Patient seen and examined at bedside. Overnight there were no events. Pt continues to refuse MRI. She is amenable to release of records from [facility] (formerly [facility] where she last has an MRI performed. OBJECTIVE: Vital Signs Temp Pulse Resp BP Pulse Ox 97.7 F 64 18 151/77 100 05/21/19 18:00 05/21/19 18:00 05/21/19 18:00 05/21/19 18:00 05/21/19 09:00 GENERAL: The patient is awake, alert, and fully oriented, in no acute distress. HEAD: Normal with no signs of trauma. EYES: PERRL, extraocular movements intact, sclera anicteric, conjunctiva clear. No ptosis. ENT: Ears normal, nares patent, oropharynx clear without exudates, moist mucous membranes. NECK: Trachea midline, full range of motion, supple. LUNGS: Breath sounds equal, clear to auscultation bilaterally, no wheezes, no crackles, no accessory muscle use. HEART: Regular rate and rhythm, S1, S2 without murmur, rub or gallop. ABDOMEN: Soft, nontender, nondistended, normoactive bowel sounds, no guarding, no rebound, no hepatosplenomegaly, no masses. EXTREMITIES: 2+ pulses, warm, well-perfused, no edema. NEUROLOGICAL: Cranial nerves II through XII grossly intact. Normal speech, gait not observed. PSYCH: Normal mood, normal affect. SKIN: Warm, dry, normal turgor, no rashes or lesions noted Laboratory Results - last 24 hr 05/19/19 05/21/19 05/21/19 07:00 06:47 06:53 POC Glucometer 78 TSH 1.55 Free T4 0.84 ACTH 24.2 05/21/19 05/21/19 11:08 16:10 POC Glucometer 143 108 TSH Free T4 ACTH Active Medications Amlodipine Besylate (Norvasc -) 10 mg PO DAILY [facility] Last Admin: 05/21/19 10:02 Dose: 10 mg Aspirin (Asa -) 81 mg PO DAILY [facility] Last Admin: 05/21/19 10:02 Dose: 81 mg Atorvastatin Calcium (Lipitor -) 40 mg PO HS [facility] Last Admin: 05/21/19 21:31 Dose: 40 mg Donepezil HCl (Aricept -) 5 mg PO DAILY [facility] Last Admin: 05/21/19 10:02 Dose: 5 mg Heparin Sodium (Porcine) (Heparin -) 5,000 unit SQ TID [facility] Last Admin: 05/21/19 21:30 Dose: 5,000 unit Insulin Aspart (Novolog Vial Sliding Scale -) 1 vial SQ TIDAC [facility]; Protocol Last Admin: 05/21/19 16:11 Dose: Not Given Memantine (Namenda -) 5 mg PO BID [facility] Last Admin: 05/21/19 21:31 Dose: 5 mg Thiamine HCl (Vitamin B1 Injection -) 200 mg IVPB Q8H [facility] Stop: 05/22/19 20:00 Last Admin: 05/21/19 21:30 Dose: 200 mg ASSESSMENT/PLAN: 68 y/o female PMH HTN and DM brought in by [employer] P[facility] after being found in car and confused. The pt offers no complaints but is unable to provide a clear history and has peculiar history consistent with fugue vs dementia. 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 Small hypodensity LEFT light radiata. Complete opacification of sphenoid sinus with masslike attenuation with erosive and destructive like changes at the base of the skill in the region of the clivus and sella turcica. - UA, U tox, etoh, rpr: NEG - B12 high. Folate, TSH WNL - F/u brain MRI to assess sella turcica - Consult psych: No acute Mental illness. - Consult neurology: Final dose thiamine 200 mg IVPB q8h, donepezil 5 mg q AM - Prolactin is elevated, TSH is NL - ACTH, cortisol, TSH, FT3, FT4 pending - Endo consulted # Elevated CK - CK 862 - Initially reported as homeless - Was sleeping in car - Trop <0.02 # DM - Hold home regimen - ISS ACHS # HLD - Cont. curent home regimen: atorvastatin 40 mg hs # HTN - Cont. curent home regimen: amlodepine 10 mg PO QD # Poss h/o dementia - Ambulatory memantine 5 mg po BID # F/E/N - NS - Cont. to monitor - diabetic/low sodium diet # DVT prophylaxis - Heparin SQ # Disposition - med/surg Visit type - Emergency Visit Emergency Visit: No - New Patient This patient is new to me today: No - Critical Care Critical Care patient: No ATTENDING PHYSICIAN STATEMENT I saw and evaluated the patient. I reviewed the resident's note and discussed the case with the resident. I agree with the resident's findings and plan as documented. SUBJECTIVE: OBJECTIVE: ASSESSMENT AND PLAN:
--- NOTE | 2019-05-21 20:03 | PN ---
Teaching Attending Note Name of Resident: Tushar Lynne ATTENDING PHYSICIAN STATEMENT I saw and evaluated the patient. I reviewed the resident's note and discussed the case with the resident. I agree with the resident's findings and plan as documented. SUBJECTIVE: no pain, fever or chills OBJECTIVE: NAD, awake. MMM. No facial droop. Cv: RRR, No MRG Lungs: CTAB Ext: No edema or erythema. ASSESSMENT AND PLAN: 68 y/o lady with h/o DM, HTN, , and questionable brain sx who presented after police found her sleeping in her car. 1- Possible dementia 2- H/o resection of a prolactinoma 3- H/o DM 4- HTN 5- Small infarcts on CT scan Plan : - Cont to refuse MRI. - last day of thiamine today - prolactin is elevated , TSH is nl. will d/w Dr. Lino - Records from chart computer pending - Records from [facility] were requested - ACTH pending . cortisol, TSH, FT3, FT4 pending - cont SSI - cont Norvasc - cont ASA - DVT PX : heparin
[2019-05-21] MEDS: ATORVASTATIN CA 40 MG TABLET (FP) PO SCH (21:31)
[2019-05-22] MEDS: HEPARIN NA (PORCINE) 5,000 UNITS/ML 1ML VIAL SQ SCH ×3 (05:07→22:52)
[2019-05-22] MEDS: THIAMINE HCL 200 MG/2 ML VIAL IVPB SCH ×2 (05:07→12:54)
[2019-05-22] MEDS: INSULIN SLIDING SCALE (NOVOLOG) 1 VIAL SQ SCH ×4 (06:29→18:20)
[2019-05-22] MEDS: MEMANTINE HCL 5 MG TABLET (UD) PO SCH ×2 (09:22→22:51)
[2019-05-22] MEDS: ASPIRIN 81 MG CHEWABLE TABLETS PO SCH (09:23)
[2019-05-22] MEDS: DONEPEZIL HCL 5 MG TABLET (FP) PO SCH (09:31)
[2019-05-22] MEDS: amLODIPine BESYLATE 10 MG TABLET (FP) PO SCH (09:31)
--- NOTE | 2019-05-22 19:06 | PN ---
Teaching Attending Note Name of Resident: Poncho Glaser ATTENDING PHYSICIAN STATEMENT I saw and evaluated the patient. I reviewed the resident's note and discussed the case with the resident. I agree with the resident's findings and plan as documented. SUBJECTIVE: No pain, weakness,. no CAR . no change in vision . R big toe feels different compared to rest of toes. OBJECTIVE: NAD, awake. MMM. No facial droop. Cv: RRR, No MRG Lungs: CTAB Ext: No edema or erythema. Neuro of LE: strength 5/5 proximally and distally. sensation to light touch is nl except over R big toe ( decreased) 2+ knee jerk b/l. ASSESSMENT AND PLAN: 68 y/o lady with h/o DM, HTN, , and questionable brain sx who presented after police found her sleeping in her car. 1- Possible dementia 2- H/o resection of a prolactinoma 3- H/o DM 4- HTN. 5- Small infarcts on CT scan. Plan: - Cont to refuse MRI. - finished thiamine course x3 days - start Cabergoline twice a week per endo ( d/w him by team). will do Tuesday and Tuesday - Records from community engagement specialist are still not available also from [facility] - ACTH NL. prednisone pending . cortisol, TSH, FT3, FT4 NL - cont SSI - cont Norvasc - cont ASA - DVT PX : heparin - Had a prolonged conversation with Dr. Wadsworth , the patient is capable of making decisions, and has no psych illness. - team spoke to patient to pick her mom up at dc time. patient does not want to live with ehr daughter. She will be referred to a halfway. ut tomorrow as per social work advise.
[2019-05-22] MEDS: ATORVASTATIN CA 40 MG TABLET (FP) PO SCH (22:51)
[2019-05-23] MEDS: INSULIN SLIDING SCALE (NOVOLOG) 1 VIAL SQ SCH ×3 (06:18→17:42)
[2019-05-23] MEDS: HEPARIN NA (PORCINE) 5,000 UNITS/ML 1ML VIAL SQ SCH ×3 (06:26→21:52)
--- NOTE | 2019-05-23 07:50 | DS ---
Physical Exam: SUBJECTIVE: Patient seen and examined OBJECTIVE: Vital Signs Period Temp Pulse Resp BP Sys/Mathews Pulse Ox Last 24 Hr 98.1 F-98.8 F 58-69 16-18 113-149/47-66 100-100 PHYSICAL EXAM GENERAL: The patient is awake, alert, and fully oriented, in no acute distress. HEAD: Normal with no signs of trauma. EYES: PERRL, extraocular movements intact, sclera anicteric, conjunctiva clear. ENT: Ears normal, nares patent, oropharynx clear without exudates, moist mucous membranes. NECK: Trachea midline, full range of motion, supple. LUNGS: Breath sounds equal, clear to auscultation bilaterally, no wheezes, no crackles, no accessory muscle use. HEART: Regular rate and rhythm, S1, S2 without murmur, rub or gallop. ABDOMEN: Soft, nontender, nondistended, normoactive bowel sounds, no guarding, no rebound, no hepatosplenomegaly, no masses. EXTREMITIES: 2+ pulses, warm, well-perfused, no edema. NEUROLOGICAL: Cranial nerves II through XII grossly intact. Normal speech, gait not observed. PSYCH: Normal mood, normal affect. SKIN: Warm, dry, normal turgor, no rashes or lesions noted. LABS Laboratory Results - last 24 hr 05/21/19 05/22/19 05/22/19 06:53 12:58 18:16 POC Glucometer 114 202 Cortisol AM Sample 9.8 05/23/19 05:38 POC Glucometer 86 Cortisol AM Sample HOSPITAL COURSE: Date of Admission:05/17/19 Date of Discharge: 05/23/19 Discharge Summary Problems reviewed: Yes Reason For Visit: SOCIAL PROBLEM Current Active Problems Social problem (Acute) Diabetes (Chronic) HTN (hypertension) (Chronic) Prolactinoma (Chronic) Condition: Stable - Instructions Diet, Activity, Other Instructions: YOUR VISIT You came to the hospital because you had some forgetfulness and were living in your car. You were admitted to the hospital for care of this concern. While here you were seen by neurology, psychiatry, and endocrinology. You could benefit from further assessment with an MRI, but declined this study. Given current lab values, it is important you take all of your home medications and follow up with your doctors' appointments below. You are now stable and may return home. Since you do not have a home at this time you will be assisted with finding a custodial of your choice. MEDICATIONS Please continue to take your medications as prescribed: Amlodepine 10 mg by mouth every day Aspirin 81 mg by mouth every day Atorvastatin 40 mg by mouth every night Memantine 5 mg by mouth twice a day Metformin 500 mg by mouth every day NEW MEDICATIONS Cabergoline 0.25 two times per week (Tuesday and Tuesday) Donepezil 5 mg by mouth every day ADDITIONAL CARE Please make an appointment to see a primary care provider 1 week from today. Since you do not currently have one, you can be seen at the [facility] residents clinic located at [address] [place] [address]. Please call to make an appointment. If you would like to continue seeing Dr. Poncho Glaser, please ask for a Tuesday morning appointment. Please make an appointment to see a head of business development in 1 week. A referral has to Dr. Rosas has been provided. Please make an appointment to see a neurologist in 1 week. A referral has to Dr. Lawrence has been provided. Please make an appointment to see a psychiatrist in 1 week. A referral has to Dr. Rodriguez has been provided. [facility] where you got your surgery done ADDITIONAL INFORMATION Please call 911 or come directly to the emergency department if you experience unusual headache, vision change, shortness of breath, chest pain, numbness, tingling, loss of alertness/awareness, loss of function, unusual bleeding or any alarming symptoms. Referrals: Karson Cantu MD [Staff Physician] - 1 Week Pamella Rodriguez MD [Staff Physician] - 1 Week Miguelangel Lawrence MD [Staff Physician] - 2 Weeks Rhoda Rosas MD [Staff Physician] - 2 Weeks Disposition: HOME - Home Medications Comprehensive Discharge Medication List: Ambulatory Orders Amlodipine Besylate [Norvasc -] 10 mg PO DAILY 30 Days #30 tablet 05/22/19 Aspirin 81 mg PO DAILY 30 Days #30 tab.chew 05/22/19 Atorvastatin Calcium 40 mg PO HS 30 Days #30 tablet 05/22/19 Cabergoline 0.25 mg PO MOFR 30 Days #8 tablet 05/22/19 Donepezil HCl [Aricept -] 5 mg PO DAILY 30 Days #30 tablet 05/22/19 Memantine HCl [Namenda -] 5 mg PO BID 60 Days #60 tab 05/22/19 metFORMIN HCL [Metformin HCl] 500 mg PO DAILY 30 Days #30 tablet 05/22/19 ATTENDING PHYSICIAN STATEMENT I saw and evaluated the patient. I reviewed the resident's note and discussed the case with the resident. I agree with the resident's findings and plan as documented. SUBJECTIVE: OBJECTIVE: ASSESSMENT AND PLAN:
--- NOTE | 2019-05-23 08:51 | PN ---
Progress Note (short form) - Note Progress Note: Denies any complaints Eager to go home Vital Signs Period Temp Pulse Resp BP Sys/Mathews Pulse Ox Last 24 Hr 98.1 F-98.8 F 58-69 16-18 113-149/47-66 100-100 PE: awake, alert Neck: supple, No JVD Lunngs: CTA CVS: S1S2 Abd: benign Ext: No edema CMP Sodium 145 mmol/L (136-145) 05/19/19 06:00 Potassium 4.0 mmol/L (3.5-5.1) 05/19/19 06:00 Chloride 112 mmol/L (98-107) H 05/19/19 06:00 Carbon Dioxide 29 mmol/L (21-32) 05/19/19 06:00 Anion Gap 4 MMOL/L (8-16) L 05/19/19 06:00 BUN 7.6 mg/dL (7-18) 05/19/19 06:00 Creatinine 0.8 mg/dL (0.55-1.3) 05/19/19 06:00 Est GFR (CKD-EPI)AfAm 87.80 05/19/19 06:00 Est GFR (CKD-EPI)NonAf 75.75 05/19/19 06:00 POC Glucometer 86 UNITS (80-120) 05/23/19 05:38 Random Glucose 89 mg/dL (74-106) 05/19/19 06:00 Calcium 9.1 mg/dL (8.5-10.1) 05/19/19 06:00 Phosphorus 3.7 mg/dL (2.5-4.9) 05/19/19 06:00 Magnesium 2.5 mg/dL (1.8-2.4) H 05/19/19 06:00 Total Bilirubin 0.3 mg/dL (0.2-1) 05/19/19 06:00 AST 24 U/L (15-37) 05/19/19 06:00 ALT 24 U/L (13-61) 05/19/19 06:00 Alkaline Phosphatase 79 U/L (45-117) 05/19/19 06:00 Creatine Kinase 862 U/L (26-192) H 05/17/19 20:45 Creatine Kinase Index 0.4 % (0.0-5.0) 05/17/19 20:45 CK-MB (CK-2) 4.0 ng/mL (0.5-3.6) H 05/17/19 20:45 Troponin I < 0.02 ng/ml (0.00-0.05) 05/17/19 20:45 Total Protein 6.3 g/dl (6.4-8.2) L 05/19/19 06:00 Albumin 3.0 g/dl (3.4-5.0) L 05/19/19 06:00 Vitamin B12 1426 pg/ml (193-986) H 05/18/19 04:45 Serum Folate 13 ng/mL (3.1-17.5) 05/18/19 04:45 TSH 1.55 uIU/ml (0.358-3.74) 05/21/19 06:53 Free T4 0.84 ng/dl (0.76-1.46) 05/21/19 06:53 Free T3 2.6 pg/ml (2.0-4.4) 05/21/19 06:53 FSH 0.7 mIU/mL (.) 05/19/19 07:00 Luteinizing Hormone 0.1 mIU/mL (.) 05/19/19 07:00 Prolactin 61.4 ng/ml (4.8-23.3) H 05/19/19 07:00 Cortisol AM Sample 9.8 ug/dL (6.2-19.4) 05/21/19 06:53 ACTH 24.2 PG/ML (7.2-63.3) 05/19/19 07:00 Current Medications Generic Name Dose Route Start Last Admin Trade Name Freq PRN Reason Stop Dose Admin Amlodipine Besylate 10 mg 05/18/19 10:00 05/22/19 09:31 Norvasc - PO 10 mg DAILY [facility] Administration Aspirin 81 mg 05/18/19 10:00 05/22/19 09:23 Asa - PO 81 mg DAILY [facility] Administration Atorvastatin Calcium 40 mg 05/18/19 22:00 05/22/19 22:51 Lipitor - PO 40 mg HS [facility] Administration Donepezil HCl 5 mg 05/19/19 10:00 05/22/19 09:31 Aricept - PO 5 mg DAILY [facility] Administration Heparin Sodium (Porcine) 5,000 unit 05/18/19 22:00 05/23/19 06:26 Heparin - SQ 5,000 unit TID [facility] Administration Insulin Aspart 1 vial 05/18/19 07:00 05/23/19 06:18 Novolog Vial Sliding Scale - SQ Not Given TIDAC [facility] Protocol Memantine 5 mg 05/18/19 22:00 05/22/19 22:51 Namenda - PO 5 mg BID [facility] Administration AP: Prolactinoma s/p Surgery: Prolactin 61.4 TSH wnl Morning cortisol 9.8m with ACTH 24.2, IGF1 pending Pt refuses MRI Called for record [facility] which is not available yet Started on Cabergoline 0.25mg twice a week. Will need to repeat Prolactin levels in 2 weeks and adjust Cabergoline dose if necessary. Pt should f'u with Neurosurgery and Endocrinology at [facility] on discharge for further management.
[2019-05-23] MEDS: MEMANTINE HCL 5 MG TABLET (UD) PO SCH ×2 (10:41→21:52)
[2019-05-23] MEDS: ASPIRIN 81 MG CHEWABLE TABLETS PO SCH (10:41)
[2019-05-23] MEDS: DONEPEZIL HCL 5 MG TABLET (FP) PO SCH (10:41)
[2019-05-23] MEDS: amLODIPine BESYLATE 10 MG TABLET (FP) PO SCH (10:41)
--- NOTE | 2019-05-23 13:14 | PN ---
Teaching Attending Note Name of Resident: Poncho Glaser ATTENDING PHYSICIAN STATEMENT I saw and evaluated the patient. I reviewed the resident's note and discussed the case with the resident. I agree with the resident's findings and plan as documented. SUBJECTIVE: Patient has no new complains. OBJECTIVE: Vital Signs Temperature 98.5 F 05/23/19 10:40 Pulse Rate 82 05/23/19 10:40 Respiratory Rate 20 05/23/19 10:40 Blood Pressure 140/84 05/23/19 10:40 O2 Sat by Pulse Oximetry (%) 100 05/22/19 21:00 GENERAL: The patient is awake, alert, and fully oriented, in no acute distress. HEAD: Normal with no signs of trauma. EYES: PERRL, extraocular movements intact, sclera anicteric, conjunctiva clear. ENT: Ears normal, oropharynx clear without exudates, moist mucous membranes. NECK: Trachea midline, full range of motion, supple. LUNGS: Breath sounds equal, clear to auscultation bilaterally, no wheezes, no crackles, no accessory muscle use. HEART: Regular rate and rhythm, S1, S2 without murmur, rub or gallop. ABDOMEN: Soft, nontender, nondistended, normoactive bowel sounds, no guarding, no rebound, no hepatosplenomegaly, no masses. EXTREMITIES: 2+ pulses, warm, well-perfused, no edema. NEUROLOGICAL: Cranial nerves II through XII grossly intact. Normal speech, gait not observed. PSYCH: Normal mood, normal affect. SKIN: Warm, dry, normal turgor, no rashes or lesions noted CBCD WBC 3.0 K/mm3 (4.0-10.0) L 05/19/19 07:47 RBC 3.66 M/mm3 (3.60-5.2) 05/19/19 07:47 Hgb 11.0 GM/dL (10.7-15.3) 05/19/19 07:47 Hct 33.7 % (32.4-45.2) 05/19/19 07:47 MCV 92.0 fl (80-96) 05/19/19 07:47 MCHC 32.8 g/dl (32.0-36.0) 05/19/19 07:47 RDW 14.6 % (11.6-15.6) 05/19/19 07:47 Plt Count 258 K/MM3 (134-434) 05/19/19 07:47 MPV 7.8 fl (7.5-11.1) 05/19/19 07:47 CMP Sodium 145 mmol/L (136-145) 05/19/19 06:00 Potassium 4.0 mmol/L (3.5-5.1) 05/19/19 06:00 Chloride 112 mmol/L (98-107) H 05/19/19 06:00 Carbon Dioxide 29 mmol/L (21-32) 05/19/19 06:00 Anion Gap 4 MMOL/L (8-16) L 05/19/19 06:00 BUN 7.6 mg/dL (7-18) 05/19/19 06:00 Creatinine 0.8 mg/dL (0.55-1.3) 05/19/19 06:00 Random Glucose 89 mg/dL (74-106) 05/19/19 06:00 Calcium 9.1 mg/dL (8.5-10.1) 05/19/19 06:00 Total Bilirubin 0.3 mg/dL (0.2-1) 05/19/19 06:00 AST 24 U/L (15-37) 05/19/19 06:00 ALT 24 U/L (13-61) 05/19/19 06:00 Alkaline Phosphatase 79 U/L (45-117) 05/19/19 06:00 Total Protein 6.3 g/dl (6.4-8.2) L 05/19/19 06:00 Albumin 3.0 g/dl (3.4-5.0) L 05/19/19 06:00 CARDIAC ENZYMES Creatine Kinase 862 U/L (26-192) H 05/17/19 20:45 Troponin I < 0.02 ng/ml (0.00-0.05) 05/17/19 20:45 Current Medications Generic Name Dose Route Start Last Admin Trade Name Freq PRN Reason Stop Dose Admin Amlodipine Besylate 10 mg 05/18/19 10:00 05/23/19 10:41 Norvasc - PO 10 mg DAILY [facility] Administration Aspirin 81 mg 05/18/19 10:00 05/23/19 10:41 Asa - PO 81 mg DAILY [facility] Administration Atorvastatin Calcium 40 mg 05/18/19 22:00 05/22/19 22:51 Lipitor - PO 40 mg HS [facility] Administration Donepezil HCl 5 mg 05/19/19 10:00 05/23/19 10:41 Aricept - PO 5 mg DAILY [facility] Administration Heparin Sodium (Porcine) 5,000 unit 05/18/19 22:00 05/23/19 06:26 Heparin - SQ 5,000 unit TID [facility] Administration Insulin Aspart 1 vial 05/18/19 07:00 05/23/19 11:49 Novolog Vial Sliding Scale - SQ Not Given TIDAC [facility] Protocol Memantine 5 mg 05/18/19 22:00 05/23/19 10:41 Namenda - PO 5 mg BID [facility] Administration Home Medications Medication Instructions Recorded Amlodipine Besylate [Norvasc -] 10 mg PO DAILY 30 Days #30 tablet 05/22/19 Aspirin 81 mg PO DAILY 30 Days #30 tab.chew 05/22/19 Atorvastatin Calcium 40 mg PO HS 30 Days #30 tablet 05/22/19 Cabergoline 0.25 mg PO MOFR 30 Days #8 tablet 05/22/19 Donepezil HCl [Aricept -] 5 mg PO DAILY 30 Days #30 tablet 05/22/19 Memantine HCl [Namenda -] 5 mg PO BID 60 Days #60 tab 05/22/19 metFORMIN HCL [Metformin HCl] 500 mg PO DAILY 30 Days #30 tablet 05/22/19 ASSESSMENT AND PLAN: Patient is a 68 y/o F with Pmhx of HTN, HLD, DM [facility] she was found in a car in freezing condition, and was brought in to ED after was found by the police in her car sleeping. for further care and evaluation. # as per neuro Dx'd OMS with mild dementia seen by the neuro and was prescribed donepezil ,Neuro F/U as out patient # H/o resection of a prolactinoma on cabergoline 2x per week MF, cortisol, TSH , FT3, FT4 NL, patient is refusing to have MRI done # H/o DM continue Metformin # HTN on norvasc # Small infarcts on CT scan on aspirin and lipitor DVT PX : heparin As per Dr. Wadsworth patient is capable of making her own decisions, and has no psych illness. -Patient does not want to live with her daughter. She will be referred to a intermediate. dc patient as per social work advise.
--- NOTE | 2019-05-23 20:59 | PN ---
Progress Note (short form) - Note Progress Note: NEUROLOGY PROGRESS: Events reviewed. Patient examined. Prolactin level remains elevated at 61.4 ug% clearly indicating residual pituitaty adenoma- probably the mass filling the ethmoid sinus. TSH, B12, RPR normal or neg. Pt is alert, friendly, inappropriate. Is unaware that she is discharged. When told she will go to a prison she says "I will not, I have money." Is happy to see me "after so long." Met me in the [place]- has NOT seen me here. O x [facility], 2019. [place]. Recalls 2 of 3. Full visual farah. Non-focal exam. 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 Residual Prolactinoma- s/p transphenoidal hypophysectomy. Plan: Continue Donepezil, Cabergoline Neuro F/U as out patient Payroll Secretary for placement. Thank you very much, Miguelangel Lawrence MD
[2019-05-23] MEDS: ATORVASTATIN CA 40 MG TABLET (FP) PO SCH (21:52)
[2019-05-24] MEDS: HEPARIN NA (PORCINE) 5,000 UNITS/ML 1ML VIAL SQ SCH (06:42)
[2019-05-24] MEDS: INSULIN SLIDING SCALE (NOVOLOG) 1 VIAL SQ SCH ×2 (06:46→11:49)
[2019-05-24] MEDS: amLODIPine BESYLATE 10 MG TABLET (FP) PO SCH (10:07)
[2019-05-24] MEDS: ASPIRIN 81 MG CHEWABLE TABLETS PO SCH (10:07)
[2019-05-24] MEDS: DONEPEZIL HCL 5 MG TABLET (FP) PO SCH (10:08)
[2019-05-24] MEDS: MEMANTINE HCL 5 MG TABLET (UD) PO SCH (10:08)
[2019-05-24 12:09] VITALS: BP 110/70; PULSE 90; TEMP 98.3
--- NOTE | 2019-05-24 15:09 | PN ---
Teaching Attending Note Name of Resident: Poncho Glaser ATTENDING PHYSICIAN STATEMENT I saw and evaluated the patient. I reviewed the resident's note and discussed the case with the resident. I agree with the resident's findings and plan as documented. SUBJECTIVE: Patient is comfortable with no acute distress. Vital Signs Temperature 98.3 F 05/24/19 10:00 Pulse Rate 90 05/24/19 10:00 Respiratory Rate 18 05/24/19 10:00 Blood Pressure 110/70 05/24/19 10:00 O2 Sat by Pulse Oximetry (%) 100 05/24/19 09:00 GENERAL: The patient is awake, alert, and fully oriented, in no acute distress. HEAD: Normal with no signs of trauma. EYES: PERRL, extraocular movements intact, sclera anicteric, conjunctiva clear. ENT: Ears normal, oropharynx clear without exudates, moist mucous membranes. NECK: Trachea midline, full range of motion, supple. LUNGS: Breath sounds equal, clear to auscultation bilaterally, no wheezes, no crackles, no accessory muscle use. HEART: Regular rate and rhythm, S1, S2 without murmur, rub or gallop. ABDOMEN: Soft, nontender, nondistended, normoactive bowel sounds, no guarding, no rebound, no hepatosplenomegaly, no masses. EXTREMITIES: 2+ pulses, warm, well-perfused, no edema. NEUROLOGICAL: Cranial nerves II through XII grossly intact. Normal speech, gait is stable. PSYCH: Normal mood, normal affect. SKIN: Warm, dry, normal turgor, no rashes or lesions noted CBCD WBC 3.0 K/mm3 (4.0-10.0) L 05/19/19 07:47 RBC 3.66 M/mm3 (3.60-5.2) 05/19/19 07:47 Hgb 11.0 GM/dL (10.7-15.3) 05/19/19 07:47 Hct 33.7 % (32.4-45.2) 05/19/19 07:47 MCV 92.0 fl (80-96) 05/19/19 07:47 MCHC 32.8 g/dl (32.0-36.0) 05/19/19 07:47 RDW 14.6 % (11.6-15.6) 05/19/19 07:47 Plt Count 258 K/MM3 (134-434) 05/19/19 07:47 MPV 7.8 fl (7.5-11.1) 05/19/19 07:47 CMP Sodium 145 mmol/L (136-145) 05/19/19 06:00 Potassium 4.0 mmol/L (3.5-5.1) 05/19/19 06:00 Chloride 112 mmol/L (98-107) H 05/19/19 06:00 Carbon Dioxide 29 mmol/L (21-32) 05/19/19 06:00 Anion Gap 4 MMOL/L (8-16) L 05/19/19 06:00 BUN 7.6 mg/dL (7-18) 05/19/19 06:00 Creatinine 0.8 mg/dL (0.55-1.3) 05/19/19 06:00 Random Glucose 89 mg/dL (74-106) 05/19/19 06:00 Calcium 9.1 mg/dL (8.5-10.1) 05/19/19 06:00 Total Bilirubin 0.3 mg/dL (0.2-1) 05/19/19 06:00 AST 24 U/L (15-37) 05/19/19 06:00 ALT 24 U/L (13-61) 05/19/19 06:00 Alkaline Phosphatase 79 U/L (45-117) 05/19/19 06:00 Total Protein 6.3 g/dl (6.4-8.2) L 05/19/19 06:00 Albumin 3.0 g/dl (3.4-5.0) L 05/19/19 06:00 CARDIAC ENZYMES Creatine Kinase 862 U/L (26-192) H 05/17/19 20:45 Troponin I < 0.02 ng/ml (0.00-0.05) 05/17/19 20:45 Home Medications Medication Instructions Recorded Amlodipine Besylate [Norvasc -] 10 mg PO DAILY 30 Days #30 tablet 05/22/19 Aspirin 81 mg PO DAILY 30 Days #30 tab.chew 05/22/19 Atorvastatin Calcium 40 mg PO HS 30 Days #30 tablet 05/22/19 Cabergoline 0.25 mg PO MOFR 30 Days #8 tablet 05/22/19 Donepezil HCl [Aricept -] 5 mg PO DAILY 30 Days #30 tablet 05/22/19 Memantine HCl [Namenda -] 5 mg PO BID 60 Days #60 tab 05/22/19 metFORMIN HCL [Metformin HCl] 500 mg PO DAILY 30 Days #30 tablet 05/22/19 Assessment and plan: Patient is a 68 y/o F with Pmhx of HTN, HLD, DM s/p transphenoidal hypophysectomy about 1 month ago at [facility] is admitted after she was found in a car in freezing condition, and was brought in to ED after was found by the police in her car sleeping. for further care and evaluation. # as per neuro Dx'd OMS with mild dementia seen by the neuro and was prescribed donepezil ,Neuro F/U as out patient # H/o resection of a prolactinoma on cabergoline 2x per week MF, cortisol, TSH , FT3, FT4 NL, patient is refusing to have MRI done # H/o DM continue Metformin # HTN on norvasc # Small infarcts on CT scan on aspirin and lipitor DVT PX : heparin As per Dr. Wadsworth patient is capable of making her own decisions, and has no psych illness. dc patient home today , discussed with the patient and the social services assistant.
== END 2019-05-24 14:17 | disposition home or self-care (01) ==
LOC: SUPCPDRO 18:21 → JER 18:21 → INTOOBSV 22:19 → JERBED 22:19 → J5S 05-18 06:43
PROVIDERS: ADMIT Internal Medicine; ATTEND Internal Medicine
PROC: 3E033GC Introduction of Other Therapeutic Substance into Peripheral Vein, Percutaneous Approach (ICD-10-PCS; principal; 2019-05-17)
DX: Z60.9 Problem related to social environment, unspecified (principal); R41.82 Altered mental status, unspecified; G31.84 Mild cognitive impairment of uncertain or unknown etiology; F09 Unspecified mental disorder due to known physiological condition; F03.90 Unspecified dementia, unspecified severity, without behavioral disturbance, psychotic disturbance, mood disturbance, and anxiety; I63.9 Cerebral infarction, unspecified; I10 Essential (primary) hypertension; E78.5 Hyperlipidemia, unspecified; E11.9 Type 2 diabetes mellitus without complications; R74.8 Abnormal levels of other serum enzymes; Z86.018 Personal history of other benign neoplasm; Z79.82 Long term (current) use of aspirin; Z79.84 Long term (current) use of oral hypoglycemic drugs; Z59.0 Homelessness
CPT/HCPCS: 36415; 70450-TC; 71045-TC-FY; 80053; 80307; 81003; 82024; 82533; 82550; 82553; 82607; 82746; 82962; 83001; 83002; 83735; 84100; 84146; 84439; 84443; 84481; 84484; 85025; 85027; 86593; 93005; 93010; 96374; 97116-GP; 97161-GP; 99284-25; G0378; J1644